=== PATIENT | male | born 1995 | race Caucasian/White ===

== ENCOUNTER 2018-05-04 22:35 | Emergency (ER) | payer OTHER ==
[~2018-05-04] VITALS: Ht 182.9 cm; Wt 68.0 kg
[2018-05-04 22:38] VITALS: BP 127/80
[2018-05-04] MEDS ORDERED: NASAL DECONGEST15 ML NASAL (23:04)
== END 2018-05-04 23:08 | disposition home or self-care (01) ==
LOC: ER 22:35
DX: R04.0 Epistaxis (principal)